=== PATIENT | female | born 1985 | race Two or more races ===

== ENCOUNTER 2019-08-02 21:19 | Emergency (ER) | payer MEDICAID ==
[~2019-08-02] VITALS: Ht 147.3 cm; Wt 54.4 kg
[~2019-08-02 21:19] MED LIST: HYDR-3974
[2019-08-02 21:38] VITALS: BP 121/79
--- NOTE | 2019-08-02 21:41 | NUR ---
C/C MIGRAINE X5 DAYS LED TO R EAR PAIN AND EAR BLEEDING X3 DAYS, SEEN AT [facility] 3 DAYS AGO, TO ER BED 4 AWAITING MED EVAL
[2019-08-02] MEDS ORDERED: DEXAMETHASONE SOD PHOSPHATE 10 MG/ML VIAL ONE (22:28)
[2019-08-02] MEDS ORDERED: KETOROLAC TROMETHAMINE INJ 60 MG/2 ML VIAL IM ONE ×2 (22:29→22:30)
[2019-08-02] MEDS ORDERED: DEXAMETHASONE SOD PHOSPHATE 10 MG/ML VIAL IM ONE (22:30)
== END 2019-08-02 23:08 | disposition home or self-care (01) ==
LOC: ER 21:25
DX: H65.91 Unspecified nonsuppurative otitis media, right ear (principal); G43.909 Migraine, unspecified, not intractable, without status migrainosus; Z88.1 Allergy status to other antibiotic agents
CPT/HCPCS: 96372 ×2; 99283; J1100; J1885

== ENCOUNTER 2021-04-09 23:53 | Emergency (ER) | payer MEDICAID ==
[~2021-04-09] VITALS: Ht 147.3 cm; Wt 56.7 kg
[2021-04-10 00:10] VITALS: BP 130/79
--- NOTE | 2021-04-10 00:18 | NUR ---
PATIENT BIBS FOR C/O L ARM AND BACK INSECT BITED AND MIGRAINE H/A. PATIENT A/O X 4, RR EVEN AND UNLABORED, NO SOB NOTED. VVS. WILL CONTINUE TO MONIOTR.
[2021-04-10] MEDS ORDERED: HYDR28.32 TP (00:21)
[2021-04-10] MEDS ORDERED: CEPH500C2 PO (00:21)
[2021-04-10] MEDS ORDERED: KETOROLAC TROMETHAMINE INJ 60 MG/2 ML VIAL IM ONE ×2 (00:30→00:31)
[2021-04-10] MEDS ORDERED: ONDANSETRON HCL/PF 4 MG/2 ML VIAL ONE (00:49)
--- NOTE | 2021-04-10 00:59 | NUR ---
Patient discharged to home in stable condition. Rx and Written and verbal after care instructions given. Patient verbalizes understanding of instruction.
== END 2021-04-10 01:00 | disposition home or self-care (01) ==
LOC: ER 23:55
DX: S40.862A Insect bite (nonvenomous) of left upper arm, initial encounter (principal); S40.262A Insect bite (nonvenomous) of left shoulder, initial encounter; G43.909 Migraine, unspecified, not intractable, without status migrainosus; Z88.1 Allergy status to other antibiotic agents; W57.XXXA Bitten or stung by nonvenomous insect and other nonvenomous arthropods, initial encounter; Y93.89 Activity, other specified; Y92.89 Other specified places as the place of occurrence of the external cause; Y99.8 Other external cause status
CPT/HCPCS: 96372; 99283; J1885; J2405

== ENCOUNTER 2021-05-14 23:45 | Emergency (ER) | payer MEDICAID ==
[~2021-05-14] VITALS: Ht 147.3 cm; Wt 59.0 kg
[~2021-05-14 23:45] MED LIST changes: +CEPH500C2 PO; +HYDR28.32 TP
--- NOTE | 2021-05-15 00:30 | NUR ---
PATIENT BIBSELF C/O HEADACHE, MIGRAINE, VERTIGO WITH N/V FOR THE PAST 3 DAYS. PATIENT IS A/OX 4, RR EVEN AND UNLABORED, NO SIGNS OF SOB NOTED. PATIENT CONNECTED TO DICTAPHONE TRANSCRIBER AND POX.
[2021-05-15] MEDS ORDERED: diphenhydrAMINE HCL 50 MG/ML VIAL ONE (00:49)
[2021-05-15] MEDS ORDERED: KETOROLAC TROMETHAMINE 15 MG/ML VIAL ONE (00:49)
[2021-05-15] MEDS ORDERED: METOCLOPRAMIDE HCL 10 MG/2 ML VIAL ONE (00:49)
[2021-05-15] MEDS ORDERED: MECLIZINE HCL 25 MG TABLET ONE (00:49)
[2021-05-15] MEDS: IV NS 0.9% 1,000 ML BAG IV ONE (01:05)
[2021-05-15] MEDS: diphenhydrAMINE HCL 50 MG/ML VIAL IV ONE (01:05)
[2021-05-15] MEDS: KETOROLAC TROMETHAMINE INJ 30 MG/ML VIAL IV ONE (01:06)
[2021-05-15] MEDS: MECLIZINE HCL 12.5 MG TABLET PO ONE (01:06)
[2021-05-15] MEDS: METOCLOPRAMIDE HCL 10 MG/2 ML VIAL IV ONE (01:06)
[2021-05-15] MEDS ORDERED: CETI-90 PO (02:39)
[2021-05-15] MEDS ORDERED: MECL-182 PO (02:39)
[2021-05-15 02:45] VITALS: BP 124/68
--- NOTE | 2021-05-15 02:50 | NUR ---
Patient discharged to home in stable condition. Written and verbal after care instructions given. Patient verbalizes understanding of instruction.
== END 2021-05-15 02:50 | disposition home or self-care (01) ==
LOC: ER 23:45
DX: G43.909 Migraine, unspecified, not intractable, without status migrainosus (principal); R42 Dizziness and giddiness; Z88.1 Allergy status to other antibiotic agents; Z79.899 Other long term (current) drug therapy
CPT/HCPCS: 96361; 96374; 96375; 99284; J1200; J1885; J2765; J8597

== ENCOUNTER 2022-02-25 19:54 | Emergency (ER) | payer MEDICAID ==
[~2022-02-25] VITALS: Ht 144.8 cm; Wt 49.9 kg
[~2022-02-25 19:54] MED LIST changes: +CETI-90 PO; +MECL-182 PO
[2022-02-25 22:04] VITALS: BP 111/85
--- NOTE | 2022-02-25 22:32 | NUR ---
WELDING MACHINE ASSEMBLER AT PT'S BEDSIDE
[2022-02-25] MEDS ORDERED: KETOROLAC TROMETHAMINE INJ 30 MG/ML VIAL IM ONE (23:00)
[2022-02-25] MEDS ORDERED: KETOROLAC TROMETHAMINE 15 MG/ML VIAL ONE (23:09)
[2022-02-25] MEDS ORDERED: NAPR-1192 PO (23:47)
== END 2022-02-26 00:29 | disposition home or self-care (01) ==
LOC: ER 20:06
DX: M79.641 Pain in right hand (principal); G43.909 Migraine, unspecified, not intractable, without status migrainosus; Z88.8 Allergy status to other drugs, medicaments and biological substances; Z79.899 Other long term (current) drug therapy
CPT/HCPCS: 29125; 73110; 73130; 96372; 99284; J1885

== ENCOUNTER 2022-05-31 19:40 | Emergency (ER) | payer MEDICAID ==
[~2022-05-31] VITALS: Ht 144.8 cm; Wt 55.8 kg
[~2022-05-31 19:40] MED LIST changes: +NAPR-1192 PO
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
--- NOTE | 2022-05-31 20:40 | NUR ---
CONTACT FINGER ASSEMBLER AT PT'S BEDSIDE
--- NOTE | 2022-05-31 20:41 | NUR ---
URINE COLLECTED AND SENT TO LAB
[2022-05-31 20:47] LABS: BASOPHILS % (AUTO) 0.5 % (0.0-2.0); EOSINOPHILS % (AUTO) 1.2 % (0.0-6.0); HEMATOCRIT 40 % (33-45); HEMOGLOBIN 13.3 g/dL (11.5-14.8); LYMPHOCYTES # (AUTO) 2.6 K/uL (0.8-4.8); LYMPHOCYTES % (AUTO) 35.7 % (20.0-44.0); MEAN CORPUSCULAR HGB CONC 34 g/dl (31.0-36.0); MEAN CORPUSCULAR VOLUME 92 fL (82-100); MONOCYTES # (AUTO) 0.6 K/uL (0.1-1.30); MONOCYTES % (AUTO) 7.7 % (2.0-12.0); NEUTROPHILS % (AUTO) 54.9 % (43.0-81.0); PLATELET COUNT (AUTO) 255 K/uL (150-450); RED BLOOD CELL COUNT(AUTO) 4.32 MIL/uL (4.0-5.2); WHITE BLOOD COUNT (AUTO) 7.4 K/uL (4.3-11.0)
--- NOTE | 2022-05-31 21:01 | NUR ---
TEASEL GIG OPERATOR AT PT'S BEDSIDE
[2022-05-31 21:03] LABS: CALCIUM, SERUM 8.6 mg/dL (8.5-10.1); CARBON DIOXIDE 25 mmol/L (21-32); CHLORIDE 104 mmol/L (98-107); CREATININE 0.6 mg/dL (0.6-1.3); GLUCOSE 97 mg/dL (74-106); POTASSIUM 3.7 mmol/L (3.5-5.1); SODIUM SERUM 136 mmol/L (136-145); UREA NITROGEN, BLOOD 10 mg/dL (7-18)
[2022-05-31 21:11] LABS: ALANINE AMINOTRANSFERASE 34 U/L (12-78); ALBUMIN 4.1 g/dL (3.4-5.0); ALKALINE PHOSPHATASE 70 U/L (46-116); ASPARTATE AMINOTRANSFERASE 21 U/L (15-37); BILIRUBIN,DIRECT 0.1 mg/dL (0.0-0.2); BILIRUBIN,TOTAL 0.4 mg/dL (0.2-1.0); TOTAL PROTEIN, SERUM 8.2 g/dL (6.4-8.2)
[2022-05-31 22:20] VITALS: BP 130/77
--- NOTE | 2022-05-31 22:20 | NUR ---
Patient discharged to home in stable condition. Written and verbal after care instructions given. Patient verbalizes understanding of instruction.
== END 2022-05-31 22:20 | disposition home or self-care (01) ==
LOC: ER 20:03
DX: S80.212A Abrasion, left knee, initial encounter (principal); S80.211A Abrasion, right knee, initial encounter; G45.4 Transient global amnesia; G43.909 Migraine, unspecified, not intractable, without status migrainosus; Z88.1 Allergy status to other antibiotic agents; Z79.899 Other long term (current) drug therapy; X58.XXXA Exposure to other specified factors, initial encounter; Y93.89 Activity, other specified; Y92.89 Other specified places as the place of occurrence of the external cause; Y99.8 Other external cause status
CPT/HCPCS: 99285; 71045; 93005; 85025; 80048; 80076; 84703; 36415; 84484; A6403

== ENCOUNTER 2022-08-16 21:15 | Emergency (ER) | payer MEDICAID ==
[~2022-08-16] VITALS: Ht 147.3 cm; Wt 59.0 kg
--- NOTE | 2022-08-16 22:00 | NUR ---
PATIENT C/O LUMP TO BACK OF HEAD. VSS. NO ACUTE DISTRESS NOTED. WILL CONTINUE TO MONITOR.
[2022-08-16] MEDS ORDERED: ACETAMINOPHEN ES 500 MG TABLET ONE (22:41)
[2022-08-16] MEDS: ACETAMINOPHEN 325 MG TABLET PO ONE (22:43)
[2022-08-16] MEDS ORDERED: diphenhydrAMINE HCL 50 MG/ML VIAL ONE (23:14)
[2022-08-16] MEDS ORDERED: ONDANSETRON HCL/PF 4 MG/2 ML VIAL ONE (23:14)
[2022-08-16] MEDS ORDERED: KETOROLAC TROMETHAMINE INJ 30 MG/ML VIAL ONE (23:14)
[2022-08-16] MEDS ORDERED: METOCLOPRAMIDE HCL 10 MG/2 ML VIAL ONE (23:15)
[2022-08-16] MEDS: diphenhydrAMINE HCL 50 MG/ML VIAL IV ONE (23:16)
[2022-08-16] MEDS: METOCLOPRAMIDE HCL 10 MG/2 ML VIAL IV ONE (23:17)
[2022-08-16] MEDS: KETOROLAC TROMETHAMINE INJ 30 MG/ML VIAL IV ONE (23:18)
[2022-08-16] MEDS: ONDANSETRON HCL/PF 4 MG/2 ML VIAL IVP ONE (23:19)
[2022-08-16] MEDS ORDERED: IBUP-1957 PO (23:40)
[2022-08-17] VITALS: BP 113/58
--- NOTE | 2022-08-17 | NUR ---
Patient discharged to home in stable condition. Written and verbal after care instructions given. Patient verbalizes understanding of instruction.
== END 2022-08-17 00:11 | disposition home or self-care (01) ==
LOC: ER 21:26
DX: G43.909 Migraine, unspecified, not intractable, without status migrainosus (principal); S00.03XA Contusion of scalp, initial encounter; Z88.8 Allergy status to other drugs, medicaments and biological substances; Z79.899 Other long term (current) drug therapy; W18.30XA Fall on same level, unspecified, initial encounter; Y93.89 Activity, other specified; Y92.89 Other specified places as the place of occurrence of the external cause; Y99.8 Other external cause status
CPT/HCPCS: 99284; 96374; 96375; 70450; J1200; J2765; J1885; J2405

== ENCOUNTER 2023-08-22 13:38 | Emergency (ER) | payer MEDICAID ==
[~2023-08-22] VITALS: Ht 147.3 cm; Wt 59.4 kg
[~2023-08-22 13:38] MED LIST changes: +IBUP-1957 PO
[2023-08-22 14:56] LABS: BASOPHILS % (AUTO) 0.2 % (0.0-2.0); EOSINOPHILS % (AUTO) 0.2 % (0.0-6.0); HEMATOCRIT 40 % (33-45); HEMOGLOBIN 13.3 g/dL (11.5-14.8); LYMPHOCYTES # (AUTO) 1.4 K/uL (0.8-4.8); LYMPHOCYTES % (AUTO) 21.5 % (20.0-44.0); MEAN CORPUSCULAR HEMOGLOBIN 30 PG (26.0-33.0); MEAN CORPUSCULAR HGB CONC 33 g/dl (31.0-36.0); MEAN CORPUSCULAR VOLUME 92 fL (82-100); MONOCYTES # (AUTO) 0.5 K/uL (0.1-1.30); MONOCYTES % (AUTO) 6.9 % (2.0-12.0); NEUTROPHILS # (AUTO) 4.8 K/uL (1.8-8.9); NEUTROPHILS % (AUTO) 71.2 % (43.0-81.0); PLATELET COUNT (AUTO) 322 K/uL (150-450); RED BLOOD CELL COUNT(AUTO) 4.37 MIL/uL (4.0-5.2); RED CELL DISTRIBUTION WIDTH 13.4 % (11.5-15.0); WHITE BLOOD COUNT (AUTO) 6.7 K/uL (4.3-11.0)
[2023-08-22 14:58] LABS: INR 1.03 (0.91-1.10); PARTIAL THROMBOPLASTIN TIME 29.1 SEC (24.3-34.3); PROTHROMBIN TIME 10.9 SECS (9.2-11.1)
[2023-08-22 15:08] LABS: CALCIUM, SERUM 9.2 mg/dL (8.5-10.1); CREATININE 0.6 mg/dL (0.6-1.3); POTASSIUM 3.5 mmol/L (3.5-5.1)
[2023-08-22 15:18] LABS: ALBUMIN 4.3 g/dL (3.4-5.0); BILIRUBIN,DIRECT 0.1 mg/dL (0.0-0.2); BILIRUBIN,TOTAL 0.6 mg/dL (0.2-1.0); TOTAL PROTEIN, SERUM 8.4 g/dL (6.4-8.2)
[2023-08-22 16:36] VITALS: BP 124/57; TEMP 98.7; O2SAT 100
== END 2023-08-22 16:37 | disposition home or self-care (01) ==
LOC: ER 13:47
DX: O26.891 Other specified pregnancy related conditions, first trimester (principal); R10.32 Left lower quadrant pain; G43.909 Migraine, unspecified, not intractable, without status migrainosus; R10.2 Pelvic and perineal pain; Z79.899 Other long term (current) drug therapy; Z88.1 Allergy status to other antibiotic agents
CPT/HCPCS: 36415; 76856-TC; 80048-TC; 80076-TC; 84702-TC; 85025-TC; 85730-TC